=== PATIENT | male | born 1985 ===

== ENCOUNTER 2017-12-01 09:02 | Emergency (ER) | payer OTHER ==
[~2017-12-01] VITALS: Ht 180.3 cm; Wt 89.8 kg
[2017-12-01 09:02] VITALS: BP 148/90
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
[2017-12-01] MEDS ORDERED: IBUPROFEN 400 MG TABLET ONE (09:10)
[2017-12-01] MEDS ORDERED: IBUPROFEN 400 MG TABLET PO ONE (09:30)
--- NOTE | 2017-12-01 09:59 | NUR ---
BACK FROM RADIOLOGY,WAITING FOR RESULTS
== END 2017-12-01 10:14 | disposition home or self-care (01) ==
LOC: ER 09:05
DX: S30.0XXA Contusion of lower back and pelvis, initial encounter (principal); V43.52XA Car driver injured in collision with other type car in traffic accident, initial encounter; Y93.89 Activity, other specified; Y92.410 Unspecified street and highway as the place of occurrence of the external cause; Y99.8 Other external cause status
CPT/HCPCS: 72100; 99284; A4606 ×2; Z7610 ×2